=== PATIENT | female | born 1990 | race African-American/Black ===

== ENCOUNTER 2018-05-27 21:27 | Outpatient (CLI) | payer OTHER ==
[~2018-05-27] VITALS: Ht 170.2 cm; Wt 67.3 kg
[~2018-05-27 21:27] MED LIST: PRENATAL MVI PO
[2018-05-27 22:16] VITALS: BP 104/64; PULSE 85; TEMP 98
== END 2018-05-27 22:15 | disposition home or self-care (01) ==
LOC: LDRO 21:27
DX: O99.89 Other specified diseases and conditions complicating pregnancy, childbirth and the puerperium (principal); O62.9 Abnormality of forces of labor, unspecified; R10.2 Pelvic and perineal pain; Z3A.31 31 weeks gestation of pregnancy

== ENCOUNTER 2018-07-20 20:11 | Inpatient (IN) | payer OTHER ==
[2018-07-20] VITALS (8 sets, daily range): BP systolic 86–109; BP diastolic 51–67; PULSE 69–83; TEMP 97.5–98.7
[2018-07-20] MEDS ORDERED: PRENATAL MVI (22:20)
[2018-07-20] MEDS ORDERED: BENADRYL25 M2 PO (22:21)
[2018-07-20 23:11] LABS: BASO % 0.2 % (0.0-2.0); EOS % 0.1 % (0-4.0); GRAN # 8.4 (1.4-6.5); GRAN % 81.6 % (42.2-75.2); HEMOGLOBIN 11.2 g/dl (12.5-16.0); LYMPH # 1.2 (1.2-3.4); LYMPH % 11.2 % (20.0-51.0); MEAN CELL VOLUME 94 fl (80.0-100.0); MEAN CORPUSCULAR HEMOGLOBIN 31 pg (27.0-31.0); MEAN CORPUSCULAR HGB CONC 33 g/dl (33.0-37.0); MONO # 0.7 (0.1-0.6); MONO % 6.4 % (1.7-9.3); PLATELET COUNT 186 K/mm3 (130-400); RED BLOOD COUNT 3.61 M/mm3 (4.10-5.30); REDCELL DISTRIBUTION WIDTH-CV 13.2 % (11.5-14.5)
[2018-07-20 23:21] LABS: HEMATOCRIT 33.9 % (37.0-47.0)
[2018-07-21 00:05] VITALS: BP 97/64; PULSE 72
[2018-07-21 01:15] VITALS: BP 105/67; PULSE 75; TEMP 97.6
[2018-07-21 07:30] VITALS: BP 84/57; PULSE 73; TEMP 97.9
[2018-07-21 15:30] VITALS: BP 89/56; PULSE 73; TEMP 97.9
[2018-07-21 21:00] VITALS: BP 107/64; PULSE 76; TEMP 98
[2018-07-22 02:56] VITALS: BP 90/55; PULSE 72; TEMP 98.4
[2018-07-22 08:53] VITALS: BP 94/63; PULSE 90; TEMP 97.8
[2018-07-22 09:00] VITALS: BP 94/63; PULSE 90; TEMP 97.8
[2018-07-22] MEDS ORDERED: IBU800 M1 PO (09:22)
== END 2018-07-22 14:10 | disposition home or self-care (01) | DRG 807 ==
LOC: LDRO 20:11 → OB 20:15 → LDR 20:15 → OB 23:45
PROVIDERS: Student in an Organized Health Care Education/Training Program
PROC: 10E0XZZ Delivery of Products of Conception, External Approach (ICD-10-PCS; principal; 2018-07-20)
DX: O99.62 Diseases of the digestive system complicating childbirth (principal); Z37.0 Single live birth; K21.9 Gastro-esophageal reflux disease without esophagitis; O66.0 Obstructed labor due to shoulder dystocia; Z3A.38 38 weeks gestation of pregnancy
CPT/HCPCS: J2210; J2590; J7120

== ENCOUNTER → 2024-07-26 | Outpatient (CLI) | payer OTHER ==
[~2024-07-26] MED LIST changes: +BENADRYL25 M2 PO; +IBU800 M1 PO; +PRENATAL MVI
== END ==
LOC: COL.RAD 10:28
DX: N92.0 Excessive and frequent menstruation with regular cycle (principal)